=== PATIENT | female | born 1945 | race Caucasian/White ===

== ENCOUNTER → 2016-08-23 | Outpatient (CLI) | payer OTHER, MEDICARE | LOC: BMCIMAGING 12:51 | PROVIDERS: ATTEND Emergency Medicine | DX: M25.861 Other specified joint disorders, right knee (principal); M25.862 Other specified joint disorders, left knee ==

== ENCOUNTER → 2017-01-03 | Outpatient (CLI) | payer OTHER, MEDICARE | LOC: BMCIMAGING 15:14 | PROVIDERS: ATTEND Internal Medicine | DX: R07.9 Chest pain, unspecified (principal) | CPT/HCPCS: 84481-90 ==

== ENCOUNTER → 2017-01-16 | Outpatient (CLI) | payer OTHER, MEDICARE ==
[~2017-01-16] MED LIST: GADOBUTROL 10 ML VIAL IVP ONE
== END ==
LOC: FIMAGING 09:14
PROVIDERS: ATTEND Internal Medicine
DX: R07.9 Chest pain, unspecified (principal); R42 Dizziness and giddiness; I10 Essential (primary) hypertension; M54.2 Cervicalgia; I67.82 Cerebral ischemia; J32.9 Chronic sinusitis, unspecified
CPT/HCPCS: A9585

== ENCOUNTER → 2017-08-15 | Outpatient (CLI) | payer OTHER, MEDICARE | LOC: BMCIMAGING 09:41 | PROVIDERS: ATTEND Internal Medicine | DX: M51.36 Other intervertebral disc degeneration, lumbar region (principal); M50.321 Other cervical disc degeneration at C4-C5 level; M50.322 Other cervical disc degeneration at C5-C6 level; M50.323 Other cervical disc degeneration at C6-C7 level ==

== ENCOUNTER 2017-09-13 16:57 | Emergency (ER) | payer OTHER, MEDICARE ==
--- NOTE | 2017-09-13 17:36 | CPEKG ---
Heart Rate: 58 RR Interval: 1034 P-R Interval: 140 QRSD Interval: 82 QT Interval: 404 QTC Interval: 397 P [place]: -22 QRS [place]: -10 T Wave [place]: 40 EKG Severity - BORDERLINE ECG - EKG Impression: SINUS RHYTHM Electronically Signed By: Madhu Baig 13-Sep-2017 17:51:46
[2017-09-13] MEDS ORDERED: DIAZEPAM 5 MG/ML 1 ML SYR IVP ONE (17:43)
--- NOTE | 2017-09-13 17:50 | EDPHY ---
H & P Stated Complaint: Vertigo x 2 wks,concern re: BP being high Time Seen by Provider: 09/13/17 17:34 HPI/ROS: CHIEF COMPLAINT: Hypertension HISTORY OF PRESENT ILLNESS: The patient is a 62-year-old female who comes to the emergency department from the urgent care for blood pressure of 160/80. She also complains of mild vertigo which she states is somewhat baseline for her. She has chronic intermittent benign positional vertigo. She had a negative MRI 6 months ago. She goes to physical therapy and has had the Samira maneuver multiple times with no improvement. She takes meclizine which usually helps but today has not helped very much. No focal weakness or deficits. No chest pain. No shortness of breath. No headache. No vision changes. She presented to an urgent care who saw her blood pressure recommended she come to the ER. REVIEW OF SYSTEMS: Constitutional: denies: chills, fever, recent illness, recent injury EENTM: denies: blurred vision, double vision, nose congestion Respiratory: denies: cough, shortness of breath Cardiac: denies: chest pain, irregular heart rate, lightheadedness, palpitations Gastrointestinal/Abdominal: denies: abdominal pain, diarrhea, nausea, vomiting, blood streaked stools Genitourinary: denies: dysuria, frequency, hematuria, pain Musculoskeletal: denies: joint pain, muscle pain Skin: denies: lesions, rash, jaundice, bruising Neurological: denies: headache, numbness, paresthesia, tingling, dizziness, weakness Hematologic/Lymphatic: denies: blood clots, easy bleeding, easy bruising Immunologic/allergic: denies: HIV/AIDS, transplant EXAM: GENERAL: Well-appearing, well-nourished and in no acute distress. HEAD: Atraumatic, normocephalic. EYES: Mild nystagmus to the right. Pupils equal round and reactive to light, extraocular movements intact, sclera anicteric, conjunctiva are normal. ENT: TMs normal, nares patent, oropharynx clear without exudates. Moist mucous membranes. NECK: Normal range of motion, supple without lymphadenopathy or JVD. LUNGS: Breath sounds clear to auscultation bilaterally and equal. No wheezes rales or rhonchi. HEART: Regular rate and rhythm without murmurs, rubs or gallops. ABDOMEN: Soft, nontender, normoactive bowel sounds. No guarding, no rebound. No masses appreciated. BACK: No CVA tenderness, no spinal tenderness, step-offs or deformities EXTREMITIES: Normal range of motion, no pitting or edema. No clubbing or cyanosis. NEUROLOGICAL: Cranial nerves II through XII grossly intact. Normal speech, normal gait. 5/5 strength, normal movement in all extremities, normal sensation normal cerebellar exam while lying. PSYCH: Normal mood, normal affect. SKIN: Warm, dry, normal turgor, no visible rashes or lesions. Source: Patient Exam Limitations: No limitations - Personal History Current Tetanus Diphtheria and Acellular Pertussis (TDAP): Yes - Medical/Surgical History Hx Asthma: No Hx Chronic Respiratory Disease: No Hx Diabetes: No Hx Cardiac Disease: No Hx Renal Disease: No Hx Cirrhosis: No Hx Alcoholism: No Hx HIV/AIDS: No Hx Splenectomy or Spleen Trauma: No Other PMH: surgery- back surgery, hysterectomy, sunday, appy, tonsilectomy. htn. osteoporosis - Family History Significant Family History: No pertinent family hx - Social History Smoking Status: Former smoker Alcohol Use: None Constitutional: Initial Vital Signs Temperature (C) 36.7 C 09/13/17 17:05 Heart Rate 60 09/13/17 17:05 Respiratory Rate 18 09/13/17 17:05 Blood Pressure 141/50 H 09/13/17 17:05 O2 Sat (%) 95 09/13/17 17:05 O2 Delivery Mode Room Air Allergies/Adverse Reactions: No Known Allergies Allergy (Verified 09/13/17 17:15) Home Medications: Medication Instructions Recorded Gabapentin [Neurontin 400 MG (*)] 600 mg PO HS 09/13/17 Levothyroxine [Synthroid 75 mcg 09/13/17 (*)] Metoprolol Tartrate 75 mg PO 09/13/17 SIMVASTATIN 10 mg PO 09/13/17 Venlafaxine HCl [Venlafaxine 75MG 150 mg PO BID 09/13/17 (*)] Medical Decision Making - Diagnostics EKG Interpretation: An EKG obtained and was read and documented in trace view. Please see trace view for full reading and report. Sinus rhythm, no acute ischemic changes ED Course/Re-evaluation: Patient's blood pressure is only slightly elevated. We discussed options. She does not wish to have further testing done for her chronic intermittent vertigo. I will give her Valium to see if this helps better than the meclizine she took earlier today. We also discussed the dangers of acutely treating the blood pressure at this time and will simply observe it. 7:15 p.m. the patient feels less vertiginous but now feels fatigued and slightly lightheaded from the Valium. She still has slightly elevated blood pressure. No headache. No focal deficits. We discussed keeping a journal of her blood pressures and following up with her primary to consider adding antihypertensive medications. She agrees with this plan. She does not wish to have further observation or workup at this time. We discussed indications for returning. Differential Diagnosis: Partial list of the Differential diagnosis considered include but were not limited to; benign positional vertigo, hypertension, anxiety and although unlikely based on the history and physical exam, I also considered CVA, hemorrhage, infection. I discussed these differential diagnoses and the plan with the patient as well as the usual and expected course. The patient understands that the diagnosis is provisional and that in medicine we are not always correct and that further workup is often warranted. Usual and customary warnings were given. All of the patient's questions were answered. The patient was instructed to return to the emergency department should the symptoms at all worsen or return, otherwise to followup with the physician as we discussed. - Data Points Medications Given: Discontinued Medications Diazepam (Valium) 5 mg IVP EDNOW ONE Stop: 09/13/17 17:44 Last Admin: 09/13/17 17:54 Dose: 5 mg Departure - Departure Disposition: Home, Routine, Self-Care Clinical Impression: Hypertension, Benign positional vertigo Condition: Fair Instructions: Benign Paroxysmal Positional Vertigo (ED), Hypertension (ED) Additional Instructions: Keep a log of your blood pressure measurements daily and follow show to your primary doctor. Referrals: NONE *PRIMARY CARE P,. [Primary Care Provider] - As per Instructions
[2017-09-13 19:33] VITALS: BP 148/106
== END 2017-09-13 19:33 | disposition home or self-care (01) ==
DX: I10 Essential (primary) hypertension (principal); H81.10 Benign paroxysmal vertigo, unspecified ear; Z87.891 Personal history of nicotine dependence
CPT/HCPCS: 93005; 96374; 99284; J3360

== ENCOUNTER → 2017-10-19 | Outpatient (CLI) | payer OTHER, MEDICARE | LOC: FIMAGING 10:46 | PROVIDERS: ATTEND Physician Assistant | DX: M50.823 Other cervical disc disorders at C6-C7 level (principal); M48.03 Spinal stenosis, cervicothoracic region; M47.893 Other spondylosis, cervicothoracic region; M48.061 Spinal stenosis, lumbar region without neurogenic claudication; M51.37 Other intervertebral disc degeneration, lumbosacral region ==

== ENCOUNTER → 2018-06-30 | Outpatient (CLI) | payer OTHER, MEDICARE | LOC: FIMAGING 09:40 | PROVIDERS: ATTEND Physician Assistant Medical | DX: R90.82 White matter disease, unspecified (principal) | CPT/HCPCS: 70553; A9585; 82565-PO ==

== ENCOUNTER → 2018-08-16 | Outpatient (CLI) | payer OTHER, MEDICARE | LOC: FIMAGING 10:20 ==